=== PATIENT | female | born 1955 | race Caucasian/White ===

== ENCOUNTER 2021-07-31 07:38 | Inpatient (IN) | payer MEDICARE, SELFPAY ==
[2021-07-24 16:06] LABS: BASOPHILS % (AUTO) 0.4 % (0-1); EOSINOPHILS # (AUTO) 0.1 X10'3 (0-0.9); EOSINOPHILS % (AUTO) 2.3 % (0-6); LYMPHOCYTES # (AUTO) 2.1 X10'3 (1.1-4.8); LYMPHOCYTES % (AUTO) 38.1 % (21-51); MEAN CORPUSCULAR HEMOGLOBIN 28.4 PG (27.0-31.0); MEAN CORPUSCULAR HGB CONC 32.5 g/dL (33.0-36.5); MEAN CORPUSCULAR VOLUME 87.5 FL (78-98); MEAN PLATELET VOLUME 8.4 FL (7.4-10.4); MONOCYTES # (AUTO) 0.6 X10'3 (0-0.9); MONOCYTES % (AUTO) 10.2 % (2-12); NEUTROPHILS # (AUTO) 2.7 X10'3 (1.8-7.7); PRE OP HEMATOCRIT 40.2 % (35.0-45.0); PRE OP PLATELET COUNT 272 X10'3 (140-440); RED BLOOD COUNT 4.59 X10'6 (4.20-5.60); RED CELL DISTRIBUTION WIDTH 13.3 % (11.5-14.5)
[2021-07-24 16:18] LABS: PRE OP PROTIME 10.8 SECONDS (9.0-12.0)
[2021-07-24 16:28] LABS: ALBUMIN 4.1 G/DL (3.4-5.0); ALBUMIN/GLOBULIN RATIO 1.2 (1.1-1.5); ALKALINE PHOSPHATASE 56 IU/L (46-116); BLOOD UREA NITROGEN 23 MG/DL (7-18); BUN/CREATININE RATIO 29.9 (6.6-38.0); CHLORIDE 105 MMOL/L (99-107); CREATININE 0.77 MG/DL (0.40-0.90); PRE OP ALT 32 U/L (30-65); PRE OP ANION GAP 8 (8-16); PRE OP AST 20 U/L (10-37); PRE OP BILIRUB, TOTAL 0.5 MG/DL (0.0-1.0); PRE OP GLUCOSE 88 MG/DL (70-104); PRE OP SODIUM 140 MMOL/L (135-145); TOTAL CARBON DIOXIDE 27.2 MMOL/L (24-32); TOTAL PROTEIN 7.6 G/DL (6.4-8.2); eGFR 75 ML/MIN
[2021-07-31] VITALS (20 sets, daily range): BP systolic 94–136; BP diastolic 51–94
[~2021-07-31] VITALS: Ht 167.6 cm; Wt 103.0 kg
[~2021-07-31 07:38] MED LIST: ATOR10TA70 PO; CYCL-1 PO; DICL-212 PO; HYDROmorphone 1 mg/ml syringe IV PRN; HYDROmorphone inj. 0.5 MG/0.5 ML DISP.SYRIN IV PRN; LEVO112T5 PO; LISI1TAB51 PO; acetaminophen 325mg tablet PO ONE; acetaminophen 325mg tablet PO PRN; bisacodyl 10mg suppository rectal RC PRN; ceFAZolin inj. 2,000 MG in dextrose 5%-water 100 ML IV ONE; celeCOXIB 100mg capsule PO ONE; diphenhydrAMINE 25mg capsule PO PRN; famotidine 20mg tablet PO ONE; gabapentin 300mg capsule PO ONE; magnesium hydroxide 30ml (MOM) UD suspension PO PRN; metoclopramide 5 mg/ml inj IV ONE; naloxone 0.4 mg/ml inj IV PRN; oxyCODONE SR 10mg (sust. release) tab -2 tabs (20mg) PO ONE; oxyCODONE/APAP 10/325mg tablet PO PRN; tranexamic acid inj. 1,000 MG in normal saline 100ml IV soln 100 ML IV ONE; tranexamic acid inj. 1,000 MG in normal saline 100ml IV soln 90 ML IV ONE; vancomycin 1,500 MG in NS 300ml IV soln IV ONE
[2021-07-31] MEDS: multivitamins, therapeutics tablet PO SCH (08:00)
[2021-07-31] MEDS: gabapentin 300mg capsule PO SCH ×3 (08:00→21:01)
[2021-07-31] MEDS: levoTHYROXINE 112mcg tablet PO SCH (08:00)
[2021-07-31] MEDS: ascorbic acid 500mg tablet PO SCH ×2 (08:00→21:05)
--- NOTE | 2021-07-31 08:00 | NUR ---
CSMS INTACT TO BILAT FEET. PULSES TO LEFT FOOT WNL. PT SHOWERED X 5 WITH HIBICLEANS. PT STATES SHE DID NOT WATCH THE JOINT CARE DVD, EDUCATED PT ON THE IMPORTANCE OF THE INFO IN THE DVD PT STATES SHE WILL WATCH IT WHEN SHE GETS HOME. PT DID NOT USE BACTROBAN OINT DR SANTANA OFFICE DID NOT CALL RX IN
[2021-07-31] MEDS: aspirin 325mg tablet PO SCH (08:30)
[2021-07-31] MEDS: ringers solution, lacted 1,000 ML IV SCH ×2 (09:08→18:58)
[2021-07-31] MEDS ORDERED: epiNEPHrine 1 mg/ml inj ONE ×2 (10:29→11:40)
[2021-07-31] MEDS ORDERED: ROPIVAcaine 0.5% (5mg/ml) 30ml vial ONE ×3 (10:29→12:21)
[2021-07-31] MEDS ORDERED: vancomycin 1,000mg inj ONE ×2 (10:29→11:40)
[2021-07-31] MEDS ORDERED: ketorolac trometh. 30mg/ml inj. ONE ×2 (10:29→11:40)
[2021-07-31] MEDS ORDERED: cloNIDine hcl/PF 100mcg/ml inj ONE ×2 (10:29→11:40)
[2021-07-31] MEDS ORDERED: MIDAZolam 1 MG/ML 5ML VIAL ONE (10:55)
[2021-07-31] MEDS ORDERED: morphine 4 MG/ML inj SYRINge IV PRN (11:20)
[2021-07-31] MEDS ORDERED: meperidine/PF 25mg/ml syringe IV PRN ×2 (11:20)
[2021-07-31] MEDS ORDERED: ringers solution, lacted 1,000 ML IV SCH (11:20)
[2021-07-31] MEDS ORDERED: acetaminophen 1,000mg/100ml IV 100 ML IV PRN (11:20)
[2021-07-31] MEDS ORDERED: ROPIVAcaine 0.2% (10 MG/5 ML) BOLUS INJECTION ADDCANAL PRN (11:20)
[2021-07-31] MEDS ORDERED: proCHLORperazine 10 MG/2 ml inj IV PRN (11:20)
[2021-07-31] MEDS ORDERED: ondansetron/PF 4mg/2ml inj IV PRN (11:20)
[2021-07-31] MEDS ORDERED: ROPIVAcaine 0.2%/PF PUMP/bolus 545 ML ADDCANAL SCH (11:20)
[2021-07-31] MEDS ORDERED: morphine 2 MG/ML inj. syringe IV PRN (11:20)
[2021-07-31] MEDS ORDERED: propofol inj 20 ML IV ONE ×2 (11:37)
[2021-07-31] MEDS ORDERED: 0.9 % SODIUM CHLORIDE 10 ML VIAL ONE (12:21)
[2021-07-31] MEDS ORDERED: phenylephrine 10mg/ml inj. ONE (12:21)
[2021-07-31] MEDS ORDERED: ePHEDrine 50MG/ML INJ. ONE (12:21)
--- NOTE | 2021-07-31 12:50 | NUR ---
Received from OR via SURGICAL BED , accompanied by Anesthesiologist VINAYAK and report given by Anesthesiolgist. PATIENT WITH 20G PIV INR IGHT AC RUNNING LR AT 100. C.O. PAIN UPON ARRIVAL, MEDICATED WITH DEMEROL WELL CONNECTING ON Q PUMP AND PATIENT DELIVERED A BOLUS. WILL CONTINUE TO ASSESS AND TREAT NEEDED FOR PAIN. SCDS DONNED. KNEE WRAP PRESENT AND ON Q SITE PRESENT TO LEFT THIGH AREA. + DP PRESENT. Addendum: 07/31/21 at 1318 by Sebas Lauren RN, RN Amended: Links added.
[2021-07-31] MEDS: meperidine/PF 25mg/ml syringe IV PRN ×2 (13:03→15:02)
--- NOTE | 2021-07-31 15:10 | NUR ---
PATIENT HAS MET ALL CRITERIA FOR TRANSFER TO THE ORTHO FLOOR. VSS. DRESSINGS INTACT. BED LOW, CALL LIGHT PRESENT AND 2 RAILS UP. RN PRESENT TO ACCEPT CARE OF PATIENT AND REPORT HAS BEEN CALLED. PALL QUESTIONS ANSWERED TO ACCEPTING RN. Addendum: 07/31/21 at 1518 by Sebas Serrano - RANULFO RN Amended: Links added.
[2021-07-31] MEDS: cefazolin/dext.iso 2gm/100ml 100 ML IV SCH (16:00)
[2021-07-31] MEDS ORDERED: tranexamic acid inj. 1,000 MG in normal saline 100ml IV soln 100 ML IV ONE (18:10)
--- NOTE | 2021-07-31 18:45 | NUR ---
Patient in room ORTHO 4011. I have received report from Jaclyn WINCHESTER and had the opportunity to ask questions and assume patient care.
--- NOTE | 2021-07-31 18:50 | NUR ---
Problems reprioritized. Patient report given, questions answered & plan of care reviewed with RAFITA WINCHESTER.
[2021-07-31] MEDS: potassium cl 20mEq in 1/2 NS 1,000 ML IV SCH ×3 (20:54→22:45)
[2021-07-31] MEDS ORDERED: HYDROchlorothiazide 12.5mg capsule PO SCH (21:00)
[2021-07-31] MEDS ORDERED: atorvastatin 10mg tablet PO SCH (21:00)
[2021-07-31] MEDS ORDERED: VANCOMYCIN 1,500MG inj. 1,500 MG in dextrose 5% water 500ml 500 ML IV SCH (21:00)
[2021-07-31] MEDS ORDERED: lisinopril 20mg tablet PO SCH (21:00)
[2021-07-31] MEDS ORDERED: sennosides 8.6mg tablet PO SCH (21:00)
[2021-08-01] MEDS: ondansetron/PF 4mg/2ml inj IV PRN ×2 (00:26→06:03)
[2021-08-01] MEDS: cefazolin/dext.iso 2gm/100ml 100 ML IV SCH (00:26)
[2021-08-01 02:00] VITALS: BP 115/64
[2021-08-01 05:54] LABS: BASOPHILS % (AUTO) 0.2 % (0-1); EOSINOPHILS % (AUTO) 0.3 % (0-6); HEMOGLOBIN 11.8 g/dl (12.0-16.0); LYMPHOCYTES # (AUTO) 1.2 X10'3 (1.1-4.8); LYMPHOCYTES % (AUTO) 15.1 % (21-51); MEAN CORPUSCULAR HEMOGLOBIN 28.9 PG (27.0-31.0); MEAN CORPUSCULAR HGB CONC 32.8 g/dL (33.0-36.5); MEAN CORPUSCULAR VOLUME 88.2 FL (78-98); MEAN PLATELET VOLUME 8.7 FL (7.4-10.4); MONOCYTES # (AUTO) 0.7 X10'3 (0-0.9); MONOCYTES % (AUTO) 9.1 % (2-12); NEUTROPHILS # (AUTO) 5.9 X10'3 (1.8-7.7); NEUTROPHILS % (AUTO) 75.3 % (42-75); PLATELET COUNT 229 X10'3 (140-440); RED BLOOD COUNT 4.08 X10'6 (4.20-5.60); WHITE BLOOD COUNT 7.9 X10'3 (4.5-11.0)
[2021-08-01 06:15] LABS: ANION GAP 0 (8-16); CHLORIDE 106 MMOL/L (99-107); POTASSIUM 4.2 MMOL/L (3.5-5.1); SODIUM 136 MMOL/L (135-145); TOTAL CARBON DIOXIDE 29.8 MMOL/L (24-32)
--- NOTE | 2021-08-01 06:30 | NUR ---
Problems reprioritized. Patient report given, questions answered & plan of care reviewed with Ricco WINCHESTER.
--- NOTE | 2021-08-01 06:41 | NUR ---
Patient in room ORTHO 4011. I have received report from RANULFO Samuel and had the opportunity to ask questions and assume patient care.
[2021-08-01] MEDS: potassium cl 20mEq in 1/2 NS 1,000 ML IV SCH (06:45)
[2021-08-01 06:54] VITALS: BP 107/69
[2021-08-01] MEDS: aspirin 325mg tablet PO SCH (07:45)
[2021-08-01] MEDS: multivitamins, therapeutics tablet PO SCH (07:45)
[2021-08-01] MEDS: gabapentin 300mg capsule PO SCH (07:46)
[2021-08-01] MEDS: levoTHYROXINE 112mcg tablet PO SCH (07:46)
[2021-08-01] MEDS: ascorbic acid 500mg tablet PO SCH (07:46)
--- NOTE | 2021-08-01 10:11 | NUR ---
Patient is alert and oriented in no apparent acute distress. Discussed with patient discharge instructions including how to manage RICARDO dressing and ONQ ball. Patient verbalized understanding of teaching. An extra RICARDO dressing given to patient as well as x2 powder cool packs. Patient ready for dc and waiting for daughter for ride.
[2021-08-01 11:13] VITALS: BP_SYST 114; BP_SYST 130; BP_DIAS 56; BP_DIAS 78
--- NOTE | 2021-08-01 11:22 | NUR ---
Patient dc'd with all personal belongings escorted in wheelchair by PCT.
--- NOTE | 2021-08-01 11:33 | NUR ---
Pt s/p left total knee arthroplasty. Written protein education with RD contact information placed in patient's chart prior to discharge. Addendum: 08/01/21 at [address] Amended: Links added.
[2021-08-01] MEDS ORDERED: celeCOXIB 100mg capsule PO SCH (20:00)
== END 2021-08-01 11:20 | disposition home or self-care (01) | DRG 470 ==
LOC: PAS 07:38 → PAS IN 07:39 → ORTHO 4S 07:40
PROVIDERS: ADMIT Orthopaedic Surgery; ATTEND Orthopaedic Surgery
PROC: 3E0T3BZ Introduction of Anesthetic Agent into Peripheral Nerves and Plexi, Percutaneous Approach (ICD-10-PCS; 2021-07-31)
PROC: 0SRD0J9 Replacement of Left Knee Joint with Synthetic Substitute, Cemented, Open Approach (ICD-10-PCS; principal; 2021-07-31 10:51)
DX: M17.12 Unilateral primary osteoarthritis, left knee (principal); M76.892 Other specified enthesopathies of left lower limb, excluding foot; Z20.822 Contact with and (suspected) exposure to COVID-19
CPT/HCPCS: 36415; 73560; 80051; 80053; 82948; 84443; 85025; 85610; 85730; 86885; 86900; 86901; 87081; 97110; 97161; 97530; A4215; A7000; C1713; C1776; G0378; J0171; J0690; J0735; J1170; J1885; J2175; J2250; J2370; J2405; J2704; J2765; J2795; J3370; J3480; J3490; J7040; J7060; J7120; U0003; U0005

== ENCOUNTER 2023-08-05 12:03 | Outpatient (CLI) | payer MEDICARE, SELFPAY ==
[~2023-08-05 12:03] MED LIST changes: -HYDROmorphone 1 mg/ml syringe IV PRN; -HYDROmorphone inj. 0.5 MG/0.5 ML DISP.SYRIN IV PRN; -acetaminophen 325mg tablet PO ONE; -acetaminophen 325mg tablet PO PRN; -bisacodyl 10mg suppository rectal RC PRN; -ceFAZolin inj. 2,000 MG in dextrose 5%-water 100 ML IV ONE; -celeCOXIB 100mg capsule PO ONE; -diphenhydrAMINE 25mg capsule PO PRN; -famotidine 20mg tablet PO ONE; -gabapentin 300mg capsule PO ONE; -magnesium hydroxide 30ml (MOM) UD suspension PO PRN; -metoclopramide 5 mg/ml inj IV ONE; -naloxone 0.4 mg/ml inj IV PRN; -oxyCODONE SR 10mg (sust. release) tab -2 tabs (20mg) PO ONE; -oxyCODONE/APAP 10/325mg tablet PO PRN; -tranexamic acid inj. 1,000 MG in normal saline 100ml IV soln 100 ML IV ONE; -tranexamic acid inj. 1,000 MG in normal saline 100ml IV soln 90 ML IV ONE; -vancomycin 1,500 MG in NS 300ml IV soln IV ONE
[2023-08-05 12:47] LABS: BASOPHILS % (AUTO) 0.4 % (0-1); EOSINOPHILS # (AUTO) 0.1 X10'3 (0-0.9); EOSINOPHILS % (AUTO) 1.8 % (0-6); HEMATOCRIT 42.8 % (35.0-45.0); HEMOGLOBIN 13.7 g/dl (12.0-16.0); LYMPHOCYTES # (AUTO) 2.1 X10'3 (1.1-4.8); LYMPHOCYTES % (AUTO) 36.7 % (21-51); MEAN CORPUSCULAR HEMOGLOBIN 28.3 PG (27.0-31.0); MEAN CORPUSCULAR VOLUME 88.4 FL (78-98); MEAN PLATELET VOLUME 9.9 FL (7.4-10.4); MONOCYTES # (AUTO) 0.6 X10'3 (0-0.9); MONOCYTES % (AUTO) 10.5 % (2-12); NEUTROPHILS # (AUTO) 2.9 X10'3 (1.8-7.7); NEUTROPHILS % (AUTO) 50.6 % (42-75); PLATELET COUNT 204 X10'3 (140-440); RED BLOOD COUNT 4.84 X10'6 (4.20-5.60); RED CELL DISTRIBUTION WIDTH 13.8 % (11.5-14.5); WHITE BLOOD COUNT 5.7 X10'3 (4.5-11.0)
[2023-08-05 12:58] LABS: ALANINE AMINOTRANSFERASE 23 U/L (12-78); ALBUMIN 4.1 G/DL (3.4-5.0); ALBUMIN/GLOBULIN RATIO 1.2 (1.1-1.5); ALKALINE PHOSPHATASE 55 IU/L (46-116); ANION GAP 8 (8-16); ASPARTATE AMINO TRANSFERASE 18 U/L (10-37); BILIRUBIN,TOTAL 0.5 MG/DL (0.1-1.0); BLOOD UREA NITROGEN 17 MG/DL (7-18); BUN/CREATININE RATIO 20.7 (10.0-20.0); CALCIUM 10.2 MG/DL (8.5-10.1); CHLORIDE 102 MMOL/L (99-107); CREATININE 0.82 MG/DL (0.40-0.90); GLUCOSE 98 MG/DL (70-104); SODIUM 138 MMOL/L (135-145); TOTAL CARBON DIOXIDE 27.8 MMOL/L (24-32); TOTAL PROTEIN 7.6 G/DL (6.4-8.2); eGFR 69 ML/MIN
[2023-08-05 13:08] LABS: CHOL/HDL RATIO 2.5 (0.00-4.99); CHOLESTEROL 158 MG/DL (0-200); FREE T4 (FREE THYROXINE) 1.32 NG/DL (0.73-1.40); HDL CHOLESTEROL 63 MG/DL (35-60); LDL CHOLESTEROL 78 MG/DL (50-100); THYROID STIMULATING HORMONE 1.83 ulU/ml (0.34-4.50); TRIGLYCERIDES 98 MG/DL (20-135)
== END 2023-08-05 23:59 | disposition home or self-care (01) ==
LOC: RAD 12:03
PROVIDERS: ATTEND Student in an Organized Health Care Education/Training Program
DX: M17.11 Unilateral primary osteoarthritis, right knee (principal); M25.561 Pain in right knee; I10 Essential (primary) hypertension; M25.761 Osteophyte, right knee; M25.861 Other specified joint disorders, right knee; Z96.652 Presence of left artificial knee joint
CPT/HCPCS: 36415; 73564; 80053; 80061; 84439; 84443; 85025